=== PATIENT | female | born 1945 | race Caucasian/White ===

== ENCOUNTER → 2017-05-03 | Outpatient (CLI) | payer MEDICARE ==
[2017-05-03 10:09] LABS: CALCIUM, TOTAL 9.1 mg/dL (8.8-10.5); CREATININE 0.97 mg/dL (0.60-1.30); POTASSIUM 4.9 mmol/L (3.5-5.1)
== END | disposition home or self-care (01) ==
LOC: LABPV 07:25
PROVIDERS: ATTEND Internal Medicine Cardiovascular Disease
DX: I11.0 Hypertensive heart disease with heart failure (principal); I50.9 Heart failure, unspecified; E11.8 Type 2 diabetes mellitus with unspecified complications

== ENCOUNTER → 2017-10-07 | Outpatient (CLI) | payer MEDICARE | END | disposition home or self-care (01) | LOC: RADMN 09:37 | PROVIDERS: ATTEND Internal Medicine Cardiovascular Disease | DX: I42.5 Other restrictive cardiomyopathy (principal); I25.9 Chronic ischemic heart disease, unspecified; I20.9 Angina pectoris, unspecified; I50.9 Heart failure, unspecified | CPT/HCPCS: 78472; Q3010 ==

== ENCOUNTER 2018-02-13 07:31 | Day surgery (SDC) | payer MEDICARE ==
[~2018-02-13] VITALS: Ht 157.5 cm; Wt 88.6 kg
[~2018-02-13 07:31] MED LIST: ALEN70TA48 PO; AMLO-512 PO; ASPI81 PO; ATOR40TA28 PO; CARV6 PO; CILO100T PO; CLOP75 PO; DSS100 PO; FURO20 PO; HYDR25TA PO; INSLAN SQ; INSU100V SQ; LOSA50TA37 PO; METF500T6 PO; OMEP20 PO; ROSU20 PO; SERT100T12 PO
[2018-02-13] MEDS ORDERED: 0.9% SODIUM CHLORIDE 10 ML SYRINGE IVP PRN (08:00)
[2018-02-13] MEDS ORDERED: METOPROLOL TARTRATE 50 MG TABLET PO PRN (08:00)
[2018-02-13 08:19] LABS: CREATININE 1.09 mg/dL (0.60-1.30); POTASSIUM 5.2 mmol/L (3.5-5.1)
[2018-02-13 08:34] LABS: GLUCOMETER DEV NAME(LOC) SDS 5; GLUCOSE,POINT OF CARE 181 MG/DL (70-110)
[2018-02-13] MEDS ORDERED: METOPROLOL TARTRATE 50 MG TABLET ONE (09:25)
[2018-02-13] MEDS ORDERED: SODIUM CHLORIDE 0.9% 100 ML ONE (09:45)
[2018-02-13] MEDS ORDERED: IOVERSOL 350 MG/ML 150 ML VIAL ONE (09:45)
[2018-02-13] MEDS ORDERED: NITROGLYCERIN 400 MCG/SUBLINGUAL SPRAY 4.9 GM BOTTLE SL ONE ×2 (10:22→10:48)
[2018-02-13] MEDS ORDERED: METOPROLOL TARTRATE 5 MG/5 ML VIAL ONE (10:22)
[2018-02-13] MEDS: METOPROLOL TARTRATE 5 MG/5 ML VIAL IV PRN ×3 (10:37→10:47)
[2018-02-13] MEDS ORDERED: METOPROLOL TARTRATE 5 MG/5 ML VIAL IVP PRN (10:47)
[2018-02-13] MEDS ORDERED: METOPROLOL TARTRATE 5 MG/5 ML VIAL IV PRN (12:15)
== END 2018-02-13 11:45 | disposition home or self-care (01) ==
LOC: SURGERY 07:31 → EDSTATUS 09:30 → SURGERY 11:45
PROVIDERS: ATTEND Internal Medicine Cardiovascular Disease
DX: I25.10 Atherosclerotic heart disease of native coronary artery without angina pectoris (principal); I11.0 Hypertensive heart disease with heart failure; I50.20 Unspecified systolic (congestive) heart failure; M47.814 Spondylosis without myelopathy or radiculopathy, thoracic region; I44.7 Left bundle-branch block, unspecified; E11.9 Type 2 diabetes mellitus without complications; E78.5 Hyperlipidemia, unspecified; I70.293 Other atherosclerosis of native arteries of extremities, bilateral legs; J44.9 Chronic obstructive pulmonary disease, unspecified; Z86.73 Personal history of transient ischemic attack (TIA), and cerebral infarction without residual deficits; Z79.891 Long term (current) use of opiate analgesic; Z88.0 Allergy status to penicillin; Z88.6 Allergy status to analgesic agent; Z87.891 Personal history of nicotine dependence; Z79.82 Long term (current) use of aspirin; Z79.01 Long term (current) use of anticoagulants; Z90.49 Acquired absence of other specified parts of digestive tract; Z79.4 Long term (current) use of insulin; Z79.84 Long term (current) use of oral hypoglycemic drugs; Z79.899 Other long term (current) drug therapy
CPT/HCPCS: 36415; 75574; 80048; 82962; 93005; J3490; J7050; Q9967

== ENCOUNTER 2018-10-20 07:20 | Day surgery (SDC) | payer MEDICARE ==
[~2018-10-20] VITALS: Ht 160 cm; Wt 88.2 kg
[~2018-10-20 07:20] MED LIST changes: +ALEN70TA10 PO; -ALEN70TA48 PO; -ATOR40TA28 PO; -CARV6 PO; -CLOP75 PO; +CLOP75TA3 PO; -DSS100 PO; -HYDR25TA PO; -LOSA50TA37 PO; +METF-960 PO; -METF500T6 PO; -ROSU20 PO; +ROSU20TA23 PO; +SACU1TAB PO; +SITA100 PO
[2018-10-20] MEDS ORDERED: 0.9% SODIUM CHLORIDE 10 ML SYRINGE IVP PRN (07:30)
[2018-10-20 08:21] LABS: ANION GAP 9 mmol/L (8-16); CALCIUM, TOTAL 8.5 mg/dL (8.8-10.5); CARBON DIOXIDE 25 mmol/L (22-29); CHLORIDE 101 mmol/L (98-107); CREATININE 0.86 mg/dL (0.60-1.30); GLUCOSE,RANDOM 320 mg/dL (70-110); POTASSIUM 4.5 mmol/L (3.5-5.1); SODIUM SERUM 135 mmol/L (136-145); UREA NITROGEN, BLOOD 24 mg/dL (7-18)
[2018-10-20 08:24] LABS: GLOMERULAR FILTR. RATE CALC > 60 mL/min (>60)
[2018-10-20] MEDS ORDERED: IOVERSOL 350 MG/ML 150 ML VIAL ONE (08:55)
[2018-10-20] MEDS ORDERED: SODIUM CHLORIDE 0.9% 100 ML ONE (08:55)
== END 2018-10-20 10:45 | disposition home or self-care (01) ==
LOC: SURGERY 07:20 → EDSTATUS 09:30 → SURGERY 10:45
PROVIDERS: ATTEND Internal Medicine Cardiovascular Disease
DX: I70.1 Atherosclerosis of renal artery (principal); I25.10 Atherosclerotic heart disease of native coronary artery without angina pectoris; J45.909 Unspecified asthma, uncomplicated; I50.9 Heart failure, unspecified; E11.9 Type 2 diabetes mellitus without complications; I10 Essential (primary) hypertension; E78.5 Hyperlipidemia, unspecified; I70.0 Atherosclerosis of aorta; K57.30 Diverticulosis of large intestine without perforation or abscess without bleeding; K42.9 Umbilical hernia without obstruction or gangrene; I11.0 Hypertensive heart disease with heart failure; Z79.82 Long term (current) use of aspirin; Z79.899 Other long term (current) drug therapy
CPT/HCPCS: 36415; 75635; 80048; 93005; J7050; Q9967

== ENCOUNTER → 2019-08-23 | Outpatient (CLI) | payer MEDICARE ==
[~2019-08-23] MED LIST changes: -AMLO-512 PO; +AMLO10TA7 PO
== END | disposition home or self-care (01) ==
LOC: RADPV 09:16
PROVIDERS: ATTEND Internal Medicine Cardiovascular Disease
DX: I70.0 Atherosclerosis of aorta (principal); I51.7 Cardiomegaly; I25.10 Atherosclerotic heart disease of native coronary artery without angina pectoris